=== PATIENT | female | born 1950 | race Hispanic/Latino ===

== ENCOUNTER 2023-10-11 14:54 | Emergency (ER) | payer SELFPAY ==
[~2023-10-11] VITALS: Ht 154.9 cm; Wt 69.4 kg
[2023-10-11] MEDS: TRAMADOL HCL 50 MG TAB PO ONE (16:44)
[2023-10-11 17:22] VITALS: PULSE 69; RESP 15; TEMP 98.4; O2SAT 98
[2023-10-11] MEDS ORDERED: ULTRAM 50MG50 MG PO (17:58)
== END 2023-10-11 17:48 | disposition home or self-care (01) ==
LOC: ER 16:13
DX: M25.561 Pain in right knee (principal); M17.11 Unilateral primary osteoarthritis, right knee; Y93.01 Activity, walking, marching and hiking; I10 Essential (primary) hypertension
CPT/HCPCS: 99284